=== PATIENT | male | born 1955 | race Caucasian/White ===

== ENCOUNTER → 2017-08-29 | Outpatient (CLI) | payer OTHER ==
[~2017-08-29] MED LIST: LORA0.5T12 PO; MULTTAB58 PO; NSNN50; SERT50TA PO; Vitamin B 12 PO; ZOLP5TAB6 PO
[2017-08-29 09:37] LABS: BASO % 0.3 %; BASO ABS # 0.02 K/uL (0-0.2); EOS % 1.6 %; HEMATOCRIT 42.7 % (42-52); HEMOGLOBIN 14.1 g/dL (14.0-18.0); IG# 0.02 K/uL (0.00-0.02); LYMPH ABS # 1.84 K/uL (1.2-3.4); MEAN CELL VOLUME 94.1 fL (80-100); MEAN CORPUSCULAR HEMOGLOBIN 31.1 pg (25-34); MEAN PLATELET VOLUME 12.1 fL (7.4-10.4); MONO % 12.4 %; MONO ABS # 0.76 K/uL (0.11-0.59); NEUT % 55.4 %; NEUT ABS # 3.39 K/uL (1.4-6.5); PLATELET COUNT 228 K/uL (130-400); RED CELL DISTRIBUTION WIDTH CV 12.7 % (11.5-14.5); RED CELL DISTRIBUTION WIDTH SD 43.3 fL (36.4-46.3); WHITE BLOOD COUNT 6.13 K/uL (4.8-10.8)
[2017-08-29 09:49] LABS: BLOOD UREA NITROGEN 14 mg/dl (7-18); CALCIUM 8.9 mg/dl (8.5-10.1); CARBON DIOXIDE 30 mmol/L (21-32); CREATININE 0.95 mg/dl (0.60-1.40); GLUCOSE 86 mg/dl (70-99); POTASSIUM 4.1 mmol/L (3.5-5.1); SODIUM 139 mmol/L (136-145)
[2017-08-29 09:57] LABS: CHOLESTEROL 154 mg/dl (0-200); LDL CHOLESTEROL CALCULATED 84 mg/dl; TRANSFERRIN 281 mg/dl (200-360)
== END | disposition home or self-care (01) ==
LOC: C.LAB1850 07:57
PROVIDERS: ATTEND Internal Medicine
DX: Z13.1 Encounter for screening for diabetes mellitus (principal); N40.0 Benign prostatic hyperplasia without lower urinary tract symptoms; Z13.220 Encounter for screening for lipoid disorders; D64.9 Anemia, unspecified

== ENCOUNTER → 2017-10-10 | Day surgery (SDC) | payer OTHER ==
[2017-10-07 15:19] VITALS: Ht 185.4 cm; Wt 88.6 kg
[~2017-10-10] VITALS: Ht 185.4 cm; Wt 88.6 kg
[~2017-10-10] MED LIST changes: +DULO-24 PO; +LORA-741 PO; -LORA0.5T12 PO; -MULTTAB58 PO; -NSNN50; +PROPOFOL IV EMULSION 10 MG/ML 20 ML VIAL IV ONE; -SERT50TA PO; +SODIUM CHLORIDE 0.9% 500ML 500 ML IV ONE; +VGR50 PO; -Vitamin B 12 PO; +ZOLP5TAB PO; -ZOLP5TAB6 PO
--- NOTE | 2017-10-10 08:54 | Endo History and Physical ---
History & Physical Date of Service: Oct 10, 2017. Chief Complaint: history of polyps Referring Physician: Dr. Shin Hernandez History of Present Illness h/o polyps Past Surgical History Hx Cardiac Surgery: No Hx Internal Defibrillator: No Hx Pacemaker: No Hx Abdominal Surgery: No Hx of Implantable Prosthesis: No Hx Post-Op Nausea and Vomiting: No Hx Cancer Surgery: No Hx Thoracic Surgery: No Hx Orthopedic: Yes (RT KNEE MENISCUS REPAIR) Hx Urinary Tract Surgery: No Family History Colon CA, Polyp, IBD Social History Smoking Status: Never Smoker Hx Substance Use: No Hx Alcohol Use: Yes (3-5 DRINKS WEEKLY) Allergies Coded Allergies: Sulfa Drugs (Verified Allergy, Mild, HIVES/CHILDHOOD, 10/07/17) Gluten (Verified Adverse Reaction, Unknown, INTOLERANCE>BLOATING, 10/07/17) Current Medications Reported Home Medications Medications Dose Route/Sig Max Daily Dose Days Date Category Dose Instructions Ambien (Zolpidem Tartrate) 5 Mg Tab 5 Mg PO HS PRN 10/07/17 Reported Viagra (Sildenafil Citrate) 50 Mg Tab 25 Mg PO PRN 10/07/17 Reported Cymbalta (Duloxetine HCl) 20 Mg Cap 1 Cap PO HS 10/07/17 Reported Ativan (Lorazepam) 0.5 Mg Tab 1 Mg PO TID PRN 10/07/17 Reported TAKES WHEN FLYING Vital Signs Weight (Kilograms): 88.64 Height (Feet): 6 Height (Inches): 1 Date Time Temp Pulse Resp B/P (MAP) Pulse Ox O2 Delivery O2 Flow Rate FiO2 10/10/17 08:06 36.6 60 18 116/61 (79) 98 Room Air Physical Exam General Appearance: no apparent distress Respiratory/Chest: Auscultation: breath sounds normal Abdomen: Inspection & Palpation: soft Assessment and Plan h/o polyps - cscopy
--- NOTE | 2017-10-10 09:20 | Discharge Instructions ---
Endoscopy Patient Instructions Date / Procedure(s) Performed Oct 10, 2017. Colonoscopy Allergy Information Coded Allergies: Sulfa Drugs (Verified Allergy, Mild, HIVES/CHILDHOOD, 10/07/17) Gluten (Verified Adverse Reaction, Unknown, INTOLERANCE>BLOATING, 10/07/17) Discharge Date / Findings Oct 10, 2017. Normal exam but poor prep Provider Instructions Activity Restrictions - No exercising or heavy lifting for 24 hours. - Do not drink alcohol the day of the procedure. - Do not drive a car or operate machinery until the day after the procedure. - Do not make any important decisions or sign important papers in 24 hours after the procedure. Following Day: - Return to full activity which may include returning to work/school. Diet Start your diet with liquids and light foods (jello, soup, juice, toast). Then eat your usual diet if not nauseated. Treatment For Common After Affects For mild abdominal pain, bloating, or excessive gas: - Rest - Eat lightly - Lie on right side Follow-Up Information Follow-up with Dr. Shin Hernandez as scheduled Anesthesia Information What You Should Know You have had a procedure that required some medicine to reduce anxiety and discomfort. This treatment is called moderate sedation. After receiving the treatment, you may be sleepy, but you will be able to breathe on your own. The effects of the treatment may last for several hours. Follow these instructions along with Activity/Diet recommendations noted above: * Do NOT do anything where dizziness or clumsiness would be dangerous. * Rest quietly at home today, then you can be up and about tomorrow. * Have a responsible person stay with you the rest of today. * You may have had an I.V. today. If so, you may take the dressing off later today. Recommendations Call your doctor if: * Trouble breathing * Continuous vomiting for more than 24 hours * Temperature above 101 degrees * Severe abdominal pain or bloating * Pain not relieved by pain medicine ordered * There is increased drainage or redness from any incision * A large amount of rectal bleeding greater than 2-3 tablespoons. (If you had a polyp/s removed or have hemorrhoids, a small amount of blood - from the rectum is to be expected.) * You have any unanswered questions or concerns. IN THE EVENT OF A SERIOUS EMERGENCY, GO TO THE NEAREST EMERGENCY ROOM Your discharge instructions were prepared by provider Casie Matta. Patient Instructions Signature Page Matthew Barahona Patient (or Guardian) Signature/Date: I have read and understand the instructions given to me by my caregivers. Caregiver/RN/Doctor Signature/Date: The above-named patient and/or guardian has received patient instructions on this date. + Original Patient Signature Page (only) stays with chart. Please make copy for patient.
--- NOTE | 2017-10-10 09:24 | GI REPORT ---
Procedure Date: 10/10/2017 8:20 AM Procedure: Colonoscopy Indications: Screening for colorectal malignant neoplasm Medicines: See the Anesthesia note for documentation of the administered medications Complications: No immediate complications. Estimated Blood Loss: Estimated blood loss: none. Procedure: Pre-Anesthesia Assessment: - ASA Grade Assessment: III - A patient with severe systemic disease. After I obtained informed consent, the scope was passed under direct vision. Throughout the procedure, the patient's blood pressure, pulse, and oxygen saturations were monitored continuously. The Scope was introduced through the anus and advanced to the terminal ileum. The colonoscopy was performed without difficulty. The patient tolerated the procedure well. The quality of the bowel preparation was poor. Findings: The perianal and digital rectal examinations were normal. The exam was grossly normal, but was limited by prep quality. Impression: - Preparation of the colon was poor. - Normal exam, but poor prep. Recommendation: - Discharge patient to home. Repeat exam in after 2 day prep. Geovanny Farris MD 10/10/2017 9:23:41 AM This report has been signed electronically. Note Initiated On: 10/10/2017 8:20 AM I attest to the content of the Intraoperative Record and orders documented therein, exceptions below
--- NOTE | 2017-10-10 09:36 | Anesthesiology Progress Note ---
Anesthesia Post Op Note Date & Time Oct 10, 2017 at 09:36 Vital Signs Pain Intensity: 0 Vital Signs Past 12 Hours Date Time Temp Pulse Resp B/P (MAP) Pulse Ox O2 Delivery O2 Flow Rate FiO2 10/10/17 09:24 52 16 116/68 (84) 98 Room Air 10/10/17 08:06 36.6 60 18 116/61 (79) 98 Room Air Notes Mental Status: alert / awake / arousable, participated in evaluation Pt Amnestic to Procedure: Yes Nausea / Vomiting: adequately controlled Pain: adequately controlled Airway Patency, RR, SpO2: stable & adequate BP & HR: stable & adequate Hydration State: stable & adequate Anesthetic Complications: no major complications apparent
[2017-10-10 09:56] VITALS: BP 126/77; PULSE 49; O2SAT 100
== END | disposition home or self-care (01) ==
LOC: C.GI 07:40
PROVIDERS: ATTEND Internal Medicine Gastroenterology
DX: Z12.11 Encounter for screening for malignant neoplasm of colon (principal); F41.9 Anxiety disorder, unspecified; F32.9 Major depressive disorder, single episode, unspecified; Z86.010 Personal history of colon polyps; Z80.0 Family history of malignant neoplasm of digestive organs; Z83.71 Family history of colonic polyps; Z88.2 Allergy status to sulfonamides; Z91.048 Other nonmedicinal substance allergy status; Z79.899 Other long term (current) drug therapy